=== PATIENT | female | born 1960 | race Caucasian/White ===

== ENCOUNTER → 2017-05-29 | Outpatient (CLI) | payer BC ==
[~2017-05-29] MED LIST: AMLODIPINE BESYL5 MG PO; CRESTOR5 MG PO; FLUOXETINE HCL20 MG PO; HYZAAR 100-21 TABLET PO; LOW DOSE ASPIRI81 M1 PO; MULTI-DAY PLUS1 EACH PO; OXYCONTIN15 MG PO; OXYCONTIN20 MG PO; SEROQUEL XR50 MG PO; SYNTHROID50 MCG PO; SYNTHROID75 MCG PO; ZANTAC150 MG PO
== END | disposition home or self-care (01) ==
LOC: CDC 08:51
DX: S83.241A Other tear of medial meniscus, current injury, right knee, initial encounter (principal)
CPT/HCPCS: 93000